=== PATIENT | female | born 1985 | race Caucasian/White ===

== ENCOUNTER 2018-12-12 14:23 | Emergency (ER) | payer OTHER ==
[~2018-12-12] VITALS: Ht 172.7 cm; Wt 95.7 kg
[2018-12-12 14:31] VITALS: Ht 172.7 cm; Wt 95.7 kg
[2018-12-12 18:17] VITALS: BP 145/92
== END 2018-12-12 18:43 | disposition home or self-care (01) ==
LOC: ED 14:23
DX: R21 Rash and other nonspecific skin eruption (principal); R55 Syncope and collapse; F32.9 Major depressive disorder, single episode, unspecified; F41.9 Anxiety disorder, unspecified; Z88.8 Allergy status to other drugs, medicaments and biological substances
CPT/HCPCS: J7512; Q0163